=== PATIENT | female | born 1990 | race Caucasian/White ===

== ENCOUNTER 2018-09-22 16:02 | Emergency (ER) | payer MEDICAID, OTHER ==
[~2018-09-22] VITALS: Ht 160 cm; Wt 72.6 kg
[2018-09-22 17:36] LABS: BASO % 0 % (0-3); EOS # 0.1 x10^3/uL (0.0-0.7); EOS % 1 % (0-3); HEMATOCRIT 39.2 % (36.0-47.0); HEMOGLOBIN 12.8 g/dL (12.0-15.5); LYMPH # 1.6 x10^3/uL (1.0-4.8); LYMPH % 13 % (24-48); MEAN CORPUSCULAR HEMOGLOBIN 27 pg (25-35); MEAN CORPUSCULAR HGB CONC 33 g/dL (31-37); MEAN CORPUSCULAR VOLUME 84 fL (79-100); MONO # 0.7 x10^3/uL (0.0-1.1); MONO % 6 % (0-9); NEUT % 80 % (31-73); PLATELET COUNT 312 x10^3/uL (140-400); RED BLOOD COUNT 4.69 x10^6/uL (3.50-5.40); RED CELL DISTRIBUTION WIDTH 15.9 % (11.5-14.5); WHITE BLOOD COUNT 12.4 x10^3/uL (4.0-11.0)
--- NOTE | 2018-09-22 18:10 | PHYS DOC ---
Past Medical History Past Medical History: GERD Additional Past Medical Histor: SEASONAL ALLERGIES Past Surgical History: Tonsillectomy Alcohol Use: None Drug Use: None Adult General Chief Complaint Chief Complaint: VAGINAL BLEEDING HPI HPI Patient is a 27 year old female who presents with 14 days post with a vaginal delivery with no complications. Patient states that her vaginal bleeding was heavy right after delivery and then began to taper off and now it is heavy again since yesterday and she's having some cramps that are coming and going. Patient rates her pain at a 5 out of 10. Patient states that she is not soaking a pad as she states it is globby and or clots. Patient denies fever and states she's been taking ibuprofen for pain. Review of Systems Review of Systems Constitutional: Denies fever or chills [] Eyes: Denies change in visual acuity, redness, or eye pain [] HENT: Denies nasal congestion or sore throat [] Respiratory: Denies cough or shortness of breath [] Cardiovascular: No additional information not addressed in HPI [] GI: Lower abdominal cramping pain. Denies nausea, vomiting, bloody stools or diarrhea [] : Vaginal bleeding. Denies dysuria or hematuria [] Musculoskeletal: Denies back pain or joint pain [] Integument: Denies rash or skin lesions [] Neurologic: Denies headache, focal weakness or sensory changes [] Endocrine: Denies polyuria or polydipsia [] All other systems were reviewed and found to be within normal limits, except as documented in this note. Allergies Allergies Allergies Coded Allergies Type Severity Reaction Last Updated Verified Sulfa (Sulfonamide Antibiotics) Allergy Severe Swelling 09/22/18 Yes Physical Exam Physical Exam Constitutional: Well developed, well nourished, no acute distress, non-toxic appearance. [] HENT: Normocephalic, atraumatic, bilateral external ears normal, oropharynx moist, no oral exudates, nose normal. [] Eyes: PERRLA, EOMI, conjunctiva normal, no discharge. [] Neck: Normal range of motion, no tenderness, supple, no stridor. [] Cardiovascular:Heart rate regular rhythm, no murmur [] Lungs & Thorax: Bilateral breath sounds clear to auscultation [] Abdomen: Bowel sounds normal, soft, no tenderness, no masses, no pulsatile masses. Vaginal brown thick discharge. [] Skin: Warm, dry, no erythema, no rash. [] Back: No tenderness, no CVA tenderness. [] Extremities: No tenderness, no cyanosis, no clubbing, ROM intact, no edema. [] Neurologic: Alert and oriented X 3, normal motor function, normal sensory function, no focal deficits noted. [] Psychologic: Affect normal, judgement normal, mood normal. [] Current Patient Data Vital Signs Vital Signs Date Time Temp Pulse Resp B/P (MAP) Pulse Ox O2 Delivery O2 Flow Rate FiO2 09/22/18 18:30 72 18 132/84 (100) 96 Room Air 09/22/18 16:42 98.7 98.7 Lab Values Laboratory Tests Test 09/22/18 16:40 White Blood Count 12.4 x10^3/uL (4.0-11.0) H Red Blood Count 4.69 x10^6/uL (3.50-5.40) Hemoglobin 12.8 g/dL (12.0-15.5) Hematocrit 39.2 % (36.0-47.0) Mean Corpuscular Volume 84 fL (79-100) Mean Corpuscular Hemoglobin 27 pg (25-35) Mean Corpuscular Hemoglobin Concent 33 g/dL (31-37) Red Cell Distribution Width 15.9 % (11.5-14.5) H Platelet Count 312 x10^3/uL (140-400) Neutrophils (%) (Auto) 80 % (31-73) H Lymphocytes (%) (Auto) 13 % (24-48) L Monocytes (%) (Auto) 6 % (0-9) Eosinophils (%) (Auto) 1 % (0-3) Basophils (%) (Auto) 0 % (0-3) Neutrophils # (Auto) 10.0 x10^3uL (1.8-7.7) H Lymphocytes # (Auto) 1.6 x10^3/uL (1.0-4.8) Monocytes # (Auto) 0.7 x10^3/uL (0.0-1.1) Eosinophils # (Auto) 0.1 x10^3/uL (0.0-0.7) Basophils # (Auto) 0.0 x10^3/uL (0.0-0.2) Laboratory Tests 09/22/18 16:40 EKG EKG [] Radiology/Procedures Radiology/Procedures Pelvic ultrasound Impressions: [facility] [address] [place] [address] IMAGING REPORT Signed PATIENT: RUMA LIU ACCOUNT: [id number] : 1990 LOCATION: ER AGE: 27 SEX: F EXAM STATUS: REG ER ORD. PHYSICIAN: BART KANG APRN REASON: POST VAGINAL BLEEDING AND PAIN PROCEDURE: PELVIS COMPLETE Indication:14 DAYS POST VAG - INCREASED BLEEDING AND PAIN TECHNIQUE: Grayscale, color Doppler and spectral waveform images of the pelvis obtained. COMPARISON: None FINDINGS: The uterus is anteverted and measures 15.0 x 7.5 x 9.0 cm (longitudinal, AP, transverse). Hypoechoic material is seen in the endometrial cavity without internal vascularity. The thickness measures 1.4 cm. The left ovary measures 4.2 x 2.8 x 2.1 cm and demonstrates evidence of blood flow. The right ovary measures 3.7 x 3.4 x 2.5 cm and demonstrates evidence of blood flow. Cervix within normal limits. No free pelvic fluid. IMPRESSION: 1. Hypoechoic material in the endometrial cavity without vascularity. Findings most likely represents complex fluid containing blood products. Although retained products of conception is not entirely ruled out. 2. Bilateral ovaries demonstrate evidence of blood flow. Electronically signed by: Duane Colin DO (09/22/2018 7:37 PM) [facility] DICTATED and SIGNED BY: DUANE COLIN DO DATE: 09/22/181934 Course & Med Decision Making Course & Med Decision Making Patient is a 27 year old female who presents with 14 days post with a vaginal delivery with no complications. Patient states that her vaginal bleeding was heavy right after delivery and then began to taper off and now it is heavy again since yesterday and she's having some cramps that are coming and going. Patient rates her pain at a 5 out of 10. Patient states that she is not soaking a pad as she states it is "globby" and or clots. Patient denies fever and states she's been taking ibuprofen for pain. Pelvic exam went as stated below. Patient's blood work is unremarkable. Patient denies any chest pain, shortness of air, chest pain, nausea, vomiting, dizziness, numbness or tingling , or weaknesses. Skin is pink warm and dry. Mucus membranes are moist. Alert and Oriented. No extremity edema. 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 Brown, thick cervical discharge Bimanual: No adnexal masses or tenderness, No CMT 1930: Patient states that the bleeding has not gotten any worse vaginally. Her pelvic ultrasound shows 1. Hypoechoic material in the endometrial cavity without vascularity. Findings most likely represents complex fluid containing blood products. Although retained products of conception is not entirely ruled out. 2. Bilateral ovaries demonstrate evidence of blood flow. 2057: Spoken with the on-call doctor for Dr. Conner and he states that the patient should call Tuesday and be seen and that she should come back to the ED if she begins having intense pain or further bleeding. [] Dragon Disclaimer Dragon Disclaimer This electronic medical record was generated, in whole or in part, using a voice recognition dictation system. Departure Departure Impression: Primary Impression: Vaginal bleeding Disposition: HOME, SELF-CARE Condition: STABLE Referrals: UNKNOWN PCP NAME (PCP) Patient Instructions: Abdominal Pain Additional Instructions: Follow-up with Dr. Conner on Tuesday. Return to the ED if you start becoming dizzy and lightheaded or her going through more than 1 pad an hour. BART KANG APRN Sep 22, 2018 18:10
--- NOTE | 2018-09-22 19:40 | RAD ---
Indication:14 DAYS POST VAG - INCREASED BLEEDING AND PAIN TECHNIQUE: Grayscale, color Doppler and spectral waveform images of the pelvis obtained. COMPARISON: None FINDINGS: The uterus is anteverted and measures 15.0 x 7.5 x 9.0 cm (longitudinal, AP, transverse). Hypoechoic material is seen in the endometrial cavity without internal vascularity. The thickness measures 1.4 cm. The left ovary measures 4.2 x 2.8 x 2.1 cm and demonstrates evidence of blood flow. The right ovary measures 3.7 x 3.4 x 2.5 cm and demonstrates evidence of blood flow. Cervix within normal limits. No free pelvic fluid. IMPRESSION: 1. Hypoechoic material in the endometrial cavity without vascularity. Findings most likely represents complex fluid containing blood products. Although retained products of conception is not entirely ruled out. 2. Bilateral ovaries demonstrate evidence of blood flow. Electronically signed by: Duane Colin DO (09/22/2018 7:37 PM) [facility]
[2018-09-22 21:00] VITALS: BP 134/77
== END 2018-09-22 21:09 | disposition home or self-care (01) ==
LOC: ER 16:02
DX: O72.1 Other immediate postpartum hemorrhage (principal); K21.9 Gastro-esophageal reflux disease without esophagitis; Z88.2 Allergy status to sulfonamides
CPT/HCPCS: 36415; 76856; 85025; 99285-25